=== PATIENT | male | born 1975 | race Caucasian/White ===

== ENCOUNTER → 2019-08-26 12:52 | Outpatient (CLI) | payer BC | END | disposition home or self-care (01) | LOC: D.LABREF 12:52 → D.CT 12:52 | PROVIDERS: ATTEND Urology | DX: N20.0 Calculus of kidney (principal) ==

== ENCOUNTER 2020-06-13 17:37 | Emergency (ER) | payer BC ==
[~2020-06-13] VITALS: Ht 175.3 cm; Wt 88.6 kg
[2020-06-13 17:48] VITALS: Ht 175.3 cm; Wt 88.6 kg
[2020-06-13 18:22] LABS: BASOPHILS 0.2 % (0-2); BILIRUBIN NEGATIVE (NEGATIVE); EOSINOPHILS 0.3 % (0-7); GLUCOSE NEGATIVE (NEGATIVE); HEMATOCRIT 46.3 % (42.0-54.0); HEMOGLOBIN 15.5 g/dL (13.5-17.5); IMMATURE GRANULOCYTES 0.1 % (0-5); KETONE NEGATIVE (NEGATIVE); LYMPHOCYTES 18.4 % (15-50); MCH 30.6 pg (26.0-34.0); MCHC 33.5 g/dL (31.0-37.0); MCV 91.5 fL (80.0-100.0); MEAN PLATELET VOLUME 9.6 fL (7.4-10.4); MONOCYTES 6.6 % (2-11); NEUTROPHILS 74.4 % (40-80); NITRITE NEGATIVE (NEGATIVE); PLATELET COUNT 238 10x3/uL (130-400); RBC 5.06 10x6/uL (4.20-6.10); RDW 13.6 % (11.5-14.5); SPECIFIC GRAVITY 1.025 (1.005-1.020); UROBILINOGEN NORMAL (NORMAL); WBC 12.9 10x3/uL (4.8-10.8)
[2020-06-13 18:23] LABS: BACTERIA FEW /hpf (NEGATIVE); RED CELLS - URINE 0-5 /hpf (0-5); WHITE CELLS - URINE OCC /hpf (NEGATIVE)
[2020-06-13 18:43] LABS: CALC OSMOLALITY 275 mosm/kg (275-300); CALCIUM 8.8 mg/dL (8.5-10.1); CARBON DIOXIDE 25.9 mmol/L (21.0-32.0); CHLORIDE - SERUM 104 mmol/L (98-107); GLUCOSE 101 mg/dL (74-106); SODIUM 137 mmol/L (136-145); UREA NITROGEN 17 mg/dL (7-18); eGFR NON AFRICAN AMERICAN 86 mL/min (90-120)
[2020-06-13 18:47] LABS: ALBUMIN 3.8 g/dL (3.4-5.0); ALKALINE PHOSPHATASE 75 U/L (30-120); ALT (SGPT) 33 U/L (10-68); PROTEIN - SERUM 8.1 g/dL (6.4-8.2)
[2020-06-13] MEDS ORDERED: HYDROCODON-ACE1 EAC7 PO (19:49)
[2020-06-13] MEDS ORDERED: FLOMAX0.4 MG PO (20:00)
[2020-06-13 20:13] VITALS: BP 152/106
== END 2020-06-13 20:13 | disposition home or self-care (01) ==
LOC: D.ER 17:37
PROVIDERS: Family Medicine
DX: R10.9 Unspecified abdominal pain (principal); M54.5 Low back pain; R31.9 Hematuria, unspecified